=== PATIENT | male | born 1990 | race Caucasian/White ===

== ENCOUNTER 2018-12-26 22:59 | Emergency (ER) | payer SELFPAY ==
[2018-12-26 23:04] VITALS: BP 145/95; PULSE 144; RESP 20; TEMP 37.3; O2SAT 99
--- NOTE | 2018-12-26 23:07 | ED.GENADUL_ITS ---
Discharge Plan Disposition Patient Disposition: HOME Condition: Good Discharge Details Chief Complaint: RashLesion Clinical Impression: Dermatitis Primary Care Provider: Sita,Local ED Provider: Jnuior Tong Meds and New Rx's Prescriptions: New hydrocortisone 2.5 % cream 1 applic TP TID Qty: 30 RF: 0 Discharge Instructions Instructions: Dermatitis (ED) Additional Instructions: Take a shower tonight and clean the back of the knee well. Apply hydrocortisone cream to the areas of the rash 3 times a day. We will have care management contact you for primary care follow-up in 1-2 weeks. Return to ED for any signs of infection, spreading rash, fevers, other concerns. Referrals: Care Management [Provider Group] Medical Decision Making Rash appears to be eczema type rash. It is not ringworm. It is not vesicular. Needs to shower and clean off the debris on the back of the knee. We will then have him apply hydrocortisone cream to the area. We will have him do this 3 times a day for the next week or so. He is staying in the area for now though is not sure for how long. Will attempt to arrange primary care follow-up but it will depend on him. Return to ED for fever, erythema, pain, difficulty breathing, continue spreading rash. HPI General Mode of arrival: ambulatory . Date/Time Provider Initiated Documentation: 12/26/18 23:06 . Limitations to Documentation: no limitations . Information obtained by: patient . HPI Narrative: Patient presents with itchy rash on his left arm, back, behind the left knee. His has dug at the rash behind the left knee enough that it is weepy and draining. He has never had anything similar. He denies any new medications, soaps, clothing. He is well otherwise. He is very anxious about being here. He is currently homeless and staying with different friends on and off. Related Data Home Medications Medication Instructions Recorded Confirmed hydrocortisone 1 applic TP TID #30 gm 12/26/18 Previous Rx's Medication Instructions Recorded hydrocortisone 1 applic TP TID #30 gm 12/26/18 Allergies Allergy/AdvReac Type Severity Reaction Status Date / Time No Known Allergies Allergy Unverified 12/26/18 23:10 Review of Systems Review of Systems As documented in HPI otherwise negative as below. Const: no fever, chills, weakness Resp: no cough, SOB, pleuritic pain CV: no CP, diaphoresis, edema, syncope GI: no abdominal pain, nausea, vomiting, diarrhea Neuro: no headache, numbness, focal weakness, confusion PFSH Social History Smoking/Tobacco Use Status: Current every day Tobacco Type: cigarettes Alcohol Intake: never Substance use type: does not use Do you feel safe at home: Yes Do you feel safe in your relationship?: Yes Exam Const General: cooperative and anxious Orientation: alert and oriented x3 Resp Effort & Inspection: normal respiratory effort Skin Rashes: rashes noted (Dry, scaly, raised rash on left arm, left back.) Other: Similar rash on back of knee but excoriated and matted sweat pant fibers stuck to the rash.
[2018-12-26 23:46] VITALS: PULSE 128
--- NOTE | 2018-12-28 08:39 | PDOC.ERCMPRO ---
Care Management Progress Note 12/28-Dr. Tong requested assistance with a PCP f/u in 2-3 weeks for a rash. The patient does not have a local provider, and the chart does not indicate who his provider is. Patients telephone number in chart is not accurate so unable to reach patient at t his time.
== END 2018-12-26 23:48 | disposition home or self-care (01) ==
PROVIDERS: Emergency Provider Emergency Medicine
DX: L30.9 Dermatitis, unspecified (principal)
CPT/HCPCS: 99282